=== PATIENT | male | born 1945 | race Caucasian/White ===

== ENCOUNTER 2021-11-22 12:38 | Emergency (ER) | payer MEDICARE, OTHER ==
[~2021-11-22] VITALS: Ht 177.8 cm; Wt 97.7 kg
[2021-11-22 12:54] VITALS: BP 140/86
[2021-11-22] MEDS ORDERED: SILVER NITRATE APPLICATOR (1 = QTY 10) TOP ONE (14:05)
[2021-11-22] MEDS ORDERED: OMEP40CA5 PO (14:14)
[2021-11-22] MEDS ORDERED: AMLO1TAB25 PO (14:14)
[2021-11-22] MEDS ORDERED: JANT5TAB PO (14:14)
[2021-11-22] MEDS ORDERED: HYDR12CA PO (14:14)
[2021-11-22] MEDS ORDERED: POTA-141 PO (14:14)
[2021-11-22] MEDS ORDERED: TAMS1CAP17 PO (14:14)
[2021-11-22] MEDS ORDERED: QUIN40TA26 PO (14:14)
[2021-11-22] MEDS ORDERED: OXYMETAZOLINE 0.05% NASAL SPRAY (AFRIN) ONE (14:15)
[2021-11-22] MEDS ORDERED: AMOX875T2 PO (16:08)
[2021-11-22 16:23] LABS: BASO % 0.5 % (0.0-1.0); EOS # 0.3 10^3/uL (0.0-0.5); EOS % 4.4 % (0.0-3.0); HEMATOCRIT 39.7 % (42.0-52.0); HEMOGLOBIN 13.5 g/dl (13.5-17.5); LYMPH # 1.9 10^3/uL (1.5-5.0); LYMPH % 28.9 % (24.0-44.0); MEAN CORPUSCULAR HEMOGLOBIN 29.9 pg (27.0-33.0); MONO # 0.7 10^3/uL (0.0-0.8); MONO % 10.4 % (2.0-8.0); NEUTROPHILS # 3.6 10^3/uL (1.5-8.5); NEUTROPHILS % 55.6 % (36.0-66.0); PLATELET COUNT, AUTOMATED 354 10^3/uL (150-450); RED BLOOD COUNT 4.51 10^6/uL (4.30-6.10); WHITE BLOOD COUNT 6.5 10^3/uL (4.0-10.0)
[2021-11-22 16:33] LABS: INR 2.07; PROTHROMBIN TIME 23.7 SECONDS (12.7-14.5)
[2021-11-22 16:43] LABS: BLOOD UREA NITROGEN 18 MG/DL (7-18); CALCIUM LEVEL 9.2 MG/DL (8.8-10.2); CARBON DIOXIDE LEVEL 26 MEQ/L (21-32); CHLORIDE LEVEL 107 MEQ/L (98-107); CREATININE FOR GFR 0.74 MG/DL (0.70-1.30); GLOMERULAR FILTRATION RATE > 60.0 (>42); GLUCOSE, FASTING 99 MG/DL (70-100); POTASSIUM SERUM 3.4 MEQ/L (3.5-5.1); SODIUM LEVEL 140 MEQ/L (136-145)
== END 2021-11-22 16:36 | disposition home or self-care (01) ==
LOC: M ED 12:38
DX: R04.0 Epistaxis (principal); I10 Essential (primary) hypertension; I48.91 Unspecified atrial fibrillation; Z79.899 Other long term (current) drug therapy; Z79.01 Long term (current) use of anticoagulants; Z91.030 Bee allergy status; Z87.891 Personal history of nicotine dependence

== ENCOUNTER → 2022-12-25 | Outpatient (CLI) | payer MEDICARE, OTHER ==
[~2022-12-25] MED LIST: AMLO1TAB25 PO; AMOX875T2 PO; HYDR12CA PO; JANT5TAB PO; OMEP40CA5 PO; POTA-141 PO; QUIN40TA26 PO; TAMS1CAP17 PO
[2022-12-25 13:27] LABS: BASO % 0.7 % (0.0-1.0); EOS # 0.3 10^3/uL (0.0-0.5); EOS % 6.2 % (0.0-3.0); HEMATOCRIT 42.9 % (42.0-52.0); HEMOGLOBIN 14.2 g/dl (13.5-17.5); LYMPH # 1.5 10^3/uL (1.5-5.0); LYMPH % 32.8 % (24.0-44.0); MEAN CORPUSCULAR HEMOGLOBIN 29.3 pg (27.0-33.0); MEAN CORPUSCULAR HGB CONC 33.1 g/dl (32.0-36.5); MEAN CORPUSCULAR VOLUME 88.6 fl (80.0-96.0); MONO # 0.7 10^3/uL (0.0-0.8); MONO % 14.9 % (2.0-8.0); NEUTROPHILS % 45.2 % (36.0-66.0); PLATELET COUNT, AUTOMATED 344 10^3/uL (150-450); RED BLOOD COUNT 4.84 10^6/uL (4.30-6.10); WHITE BLOOD COUNT 4.5 10^3/uL (4.0-10.0)
[2022-12-25 13:48] LABS: FERRITIN 16.9 NG/ML (10.5-307.3); THYROID STIMULATING HORMONE 2.836 uIU/ML (0.55-4.78)
[2022-12-25 13:49] LABS: FOLLICLE STIMULATING HORMONE 6.7 mIU/ML (1.4-18.1); LUTEINIZING HORMONE 2.4 mIU/ML (3.1-34.6); PROLACTIN 33.35 NG/ML (2.1-17.7)
[2022-12-25 13:50] LABS: IRON (FE) 126 UG/DL (65-175); TOTAL IRON BINDING CAPACITY 332 UG/DL (250-425)
[2022-12-25 13:51] LABS: ALBUMIN 3.7 G/DL (3.2-5.2); ALKALINE PHOSPHATASE 88 U/L (46-116); ALT/SGPT 25 U/L (7.0-40); AST/SGOT 20 U/L (<34); BILIRUBIN,TOTAL 0.8 MG/DL (0.3-1.2); BLOOD UREA NITROGEN 16 MG/DL (9-23); CALCIUM LEVEL 8.3 MG/DL (8.3-10.6); CARBON DIOXIDE LEVEL 29 MMOL/L (20-31); CHLORIDE LEVEL 105 MMOL/L (98-107); CHOLESTEROL LEVEL 139 MG/DL (<200); CREATININE FOR GFR 0.93 MG/DL (0.70-1.30); GLOMERULAR FILTRATION RATE > 60.0 (>42); GLUCOSE, FASTING 125 MG/DL (74-106); HDL CHOLESTEROL 47.9 MG/DL (>40); LDL CHOLESTEROL 81.7 MG/DL (<100); NON-HDL-C 91.1 MG/DL; POTASSIUM SERUM 3.5 MMOL/L (3.5-5.1); SODIUM LEVEL 140 MMOL/L (136-145); TOTAL PROTEIN 6.8 G/DL (5.7-8.2); TRIGLYCERIDES LEVEL 47 MG/DL (<150)
[2022-12-25 14:05] LABS: HEMOGLOBIN A1c 5.8 % (4.0-6.0)
== END ==
LOC: M PLALAB 09:22
PROVIDERS: ATTEND Family Medicine
DX: E22.1 Hyperprolactinemia (principal); D50.9 Iron deficiency anemia, unspecified; R73.01 Impaired fasting glucose; I10 Essential (primary) hypertension; I48.91 Unspecified atrial fibrillation; D68.69 Other thrombophilia